=== PATIENT | male | born 1980 | race Asian ===

== ENCOUNTER 2023-05-20 07:10 | Day surgery (SDC) | payer OTHER ==
[~2023-05-20] VITALS: Ht 170.2 cm; Wt 86.2 kg
[2023-05-20] MEDS ORDERED: HYDROGEN PEROXIDE 3% 240 ML BTL TP ONE (08:06)
[2023-05-20] MEDS ORDERED: LIDOCAINE/EPI MPF 1%1:200000 30 ML VIAL INJ ONE (08:06)
[2023-05-20] MEDS ORDERED: BUPIVACAINE-MPF 0.25% 30 ML VIAL INJ ONE (08:16)
[2023-05-20] MEDS ORDERED: fentaNYL citrate 0.05 MG/ML VIAL ONE (08:24)
[2023-05-20] MEDS ORDERED: MIDAZOLAM 2 MG/2 ML VIAL ONE (08:24)
[2023-05-20] MEDS ORDERED: HYDROmorphone 1 MG/ML AMP IVP PRN (10:05)
== END 2023-05-20 11:10 | disposition home or self-care (01) ==
LOC: MDS 07:10 → MMU 07:10 → MDS 11:10
PROVIDERS: ATTEND Surgery
DX: K60.3 Anal fistula (principal); K64.0 First degree hemorrhoids
CPT/HCPCS: 46270; 71045; 93005; J2001; J2250; J3010; J3490